=== PATIENT | male | born 2000 | race African-American/Black ===

== ENCOUNTER 2020-11-20 11:08 | Emergency (ER) | payer OTHER ==
[2020-11-20] MEDS ORDERED: ONDANSETRON 4 MG/2 ML VIAL ONE (12:12)
[2020-11-20] MEDS ORDERED: NA CHLORIDE 0.9% 1,000 ML ONE (12:12)
[2020-11-20] MEDS ORDERED: FAMOTIDINE 20 MG/2 ML VIAL IV ONE (12:12)
[2020-11-20 12:13] LABS: Absolute Lymphocytes (CBC) 1.3 K/uL (0.7-4.9); Basophils % 0.2 % (0-1.3); Hematocrit 33.8 % (39.6-49.0); Lymphocytes % 17.1 % (15.3-44.8); MPV 7.8 fL (7.6-11.3); RBC Red Blood Cell Count 4.46 M/uL (4.33-5.43)
[2020-11-20 12:24] LABS: ALT/SGPT 20 U/L (12-78); AST/SGOT 21 U/L (15-37); Albumin 3.2 g/dL (3.4-5.0); Alkaline Phosphatase 106 U/L (45-117); BUN Blood Urea Nitrogen 13 mg/dL (7-18); Bicarbonate 25 mmol/L (21-32); Bilirubin Direct 0.1 mg/dL (0-0.2); Bilirubin Total 0.3 mg/dL (0.2-1.0); Glucose Level 79 mg/dL (74-106); Lipase 21 U/L (73-393); Potassium 3.7 mmol/L (3.5-5.1); Protein, Total 10.8 g/dL (6.4-8.2); Sodium Level 137 mmol/L (136-145)
--- NOTE | 2020-11-20 14:28 | ER ---
Nurse's Notes [facility] Name: Jermaine Omer Age: 20 yrs Sex: Male : 2000 Arrival Date: 11/20/2020 Time: 11:12 Bed 28 Private MD: Diagnosis: Abdominal pain, unspecified;Proctitis Presentation: 11/20 11:20 Chief complaint: Patient states: "I have every symptom of covid except for shortness of ss breath. I also have had gastritis and I need that checked out too. I had blood in my vomit and that happened last time.". Coronavirus screen: Client presents with at least one sign or symptom that may indicate coronavirus-19. Ebola Screen: Patient denies exposure to infectious person. Patient denies travel to an Ebola-affected area in the 21 days before illness onset. Initial Sepsis Screen: Does the patient meet any 2 criteria? No. Patient's initial sepsis screen is negative. Does the patient have a suspected source of infection? No. Patient's initial sepsis screen is negative. Risk Assessment: Do you want to hurt yourself or someone else? Patient reports no desire to harm self or others. Onset of symptoms was November 17, 2020. 11:20 Method Of Arrival: Ambulatory ss 11:20 Acuity: FRANKLIN 3 ss Triage Assessment: 13:28 General: Appears comfortable, Behavior is cooperative, appropriate for age, anxious. oh Historical: - Allergies: 11:23 Ibuprofen; ss - Home Meds: 11:23 None [Active]; ss - PMHx: 11:23 gastritis; Asthma; ss - PSHx: 11:23 None; ss - Immunization history:: Client reports receiving the 2nd dose of the Covid vaccine. - Social history:: Smoking status: Patient denies any tobacco usage or history of. Screenin:27 Abuse screen: Denies threats or abuse. Nutritional screening: No deficits noted. oh Tuberculosis screening: No symptoms or risk factors identified. Fall Risk None identified. Assessment: 13:26 Neuro: Reports weakness in body. Cardiovascular:. GI: Reports lower abdominal pain, oh diarrhea, nausea, hx of IBS. EENT: Reports swollen lymph nodes, r/o covid. Vital Signs: 11:20 BP 150 / 85; Pulse 86; Resp 15; Temp 98.2(O); Pulse Ox 100% on R/A; Weight 52.62 kg; Height 5 ft. 11 in. (180.34 cm); Pain 0/10; 13:00 BP 122 / 71; Pulse 74; Resp 17; Pulse Ox 100% on R/A; oh 14:47 BP 120 / 74; Pulse 73; Resp 17; Pulse Ox 100% ; oh 11:20 Body Mass Index 16.18 (52.62 kg, 180.34 cm) ED Course: 11:12 Patient arrived in ED. as 11:12 Agusto Hook PA is PHCP. [facility] 11:12 Harley Coello MD is Attending Physician. m 11:23 Triage completed. ss 11:23 Arm band placed on right wrist. 11:42 Ismael Stahl, BELINDA is Primary Nurse. oh 12:02 Inserted saline lock: 20 gauge in left antecubital area, using aseptic technique. Blood oh collected. 13:27 Bed in low position. Call light in reach. oh 13:36 CT Abd/Pelvis - IV Contrast Only In Process Unspecified. EDMS 14:25 Alicia Plummer MD is Referral Physician. m 14:47 IV discontinued, bleeding controlled, Pressure dressing applied. oh 14:47 No provider procedures requiring assistance completed. oh Administered Medications: 12:01 Drug: NS 0.9% 1000 ml Route: IV; Rate: 1 bolus; Site: left antecubital; oh 12:01 Drug: Pepcid (famotidine) 20 mg Route: IVP; Site: left antecubital; oh 12:01 Drug: Zofran (Ondansetron) 4 mg Route: IVP; Site: left antecubital; oh Outcome: 14:27 Discharge ordered by . [facility] 14:47 Discharged to home oh 14:47 Condition: stable 14:47 Discharge instructions given to patient. 14:48 Patient left the ED. oh Signatures: Dispatcher [employer] EDMS Agusto Hook PA PA jmm Martinez, Amelia as Smirch, Shelby, BELINDA RN Ismael Stahl, BELINDA RN oh
--- NOTE | 2020-11-20 14:28 | EDPHYS ---
Physician Documentation [facility] Name: Jermaine Omer Age: 20 yrs Sex: Male : 2000 Arrival Date: 11/20/2020 Time: 11:12 Bed 28 Private MD: ED Physician Harley Coello HPI: 11/20 11:33 This 20 yrs old Black Male presents to ER via Ambulatory with complaints of r/o covid. jmm 11:33 The patient presents with abdominal pain. Onset: The symptoms/episode began/occurred jmm chronic. The symptoms do not radiate. Associated signs and symptoms: Pertinent negatives: fever. The symptoms are described as achy. This is a 20-year-old male with a history of chronic abdominal pain that presents emerge department with complaints of abdominal pain, vomiting, diarrhea. Worsening over the past week. Patient also has some generalized weakness and is concerned he may have coronavirus.. Historical: - Allergies: 11:23 Ibuprofen; ss - Home Meds: 11:23 None [Active]; ss - PMHx: 11:23 gastritis; Asthma; ss - PSHx: 11:23 None; ss - Immunization history:: Client reports receiving the 2nd dose of the Covid vaccine. - Social history:: Smoking status: Patient denies any tobacco usage or history of. ROS: 11:33 Cardiovascular: Negative for chest pain, palpitations, and edema, Respiratory: Negative jmm for shortness of breath, cough, wheezing, and pleuritic chest pain. 11:33 Constitutional: Positive for body aches, fatigue. 11:33 Abdomen/GI: Positive for abdominal pain. 11:33 All other systems are negative. Exam: 11:33 Constitutional: This is a well developed, well nourished patient who is awake, alert, jmm and in no acute distress. Head/Face: atraumatic. Eyes: EOMI, no conjunctival erythema appreciated ENT: Moist Mucus Membranes Neck: Trachea midline, Supple Chest/axilla: Normal chest wall appearance and motion. Cardiovascular: Regular rate and rhythm. No edema appreciated Respiratory: Normal respirations, no respiratory distress appreciated 11:33 Back: Normal ROM Skin: General appearance color normal 11:33 Abdomen/GI: Inspection: abdomen appears normal, Bowel sounds: normal, Palpation: soft, in all quadrants. 11:33 Musculoskeletal/extremity: ROM: intact in all extremities. 11:33 Skin: Appearance: Color: normal in color. 11:33 Neuro: Motor: is normal. 11:33 Psych: Behavior/mood is pleasant, cooperative. Vital Signs: 11:20 BP 150 / 85; Pulse 86; Resp 15; Temp 98.2(O); Pulse Ox 100% on R/A; Weight 52.62 kg; ss Height 5 ft. 11 in. (180.34 cm); Pain 0/10; 13:00 BP 122 / 71; Pulse 74; Resp 17; Pulse Ox 100% on R/A; oh 14:47 BP 120 / 74; Pulse 73; Resp 17; Pulse Ox 100% ; oh 11:20 Body Mass Index 16.18 (52.62 kg, 180.34 cm) ss MDM: 11:33 Patient medically screened. [facility] 14:25 Data reviewed: vital signs, nurses notes. Counseling: I had a detailed discussion with zuri the patient and/or guardian regarding: the historical points, exam findings, and any diagnostic results supporting the discharge/admit diagnosis, lab results, radiology results, the need for outpatient follow up, to return to the emergency department if symptoms worsen or persist or if there are any questions or concerns that arise at home. ED course: Patient is alert and nontoxic in appearance in the ED. Patient states feeling much better. Patient is able to tolerate p.o. in the ED. Covid is negative. Most likely has a chronic bowel condition such as ulcerative colitis or Crohn's. CT reveals inflammation in the rectum mainly.. 11/20 11:42 Order name: Basic Metabolic Panel; Complete Time: 12:38 [facility] 11/20 11:42 Order name: CBC with Diff; Complete Time: 12:21 [facility] 11/20 11:42 Order name: Hepatic Function; Complete Time: 12:38 [facility] 11/20 11:42 Order name: Lipase; Complete Time: 12:38 [facility] 11/20 12:31 Order name: SARS-COV-2 RT PCR; Complete Time: 13:38 [facility] 11/20 11:42 Order name: IV Saline Lock; Complete Time: 12:01 [facility] 11/20 11:42 Order name: Labs collected and sent; Complete Time: 12:01 [facility] 11/20 11:42 Order name: Urine Dipstick-Ancillary (obtain specimen) [facility] 11/20 13:16 Order name: CT Abd/Pelvis - IV Contrast Only [facility] Administered Medications: 12:01 Drug: NS 0.9% 1000 ml Route: IV; Rate: 1 bolus; Site: left antecubital; oh 12:01 Drug: Pepcid (famotidine) 20 mg Route: IVP; Site: left antecubital; oh 12:01 Drug: Zofran (Ondansetron) 4 mg Route: IVP; Site: left antecubital; oh Disposition: 22:58 Co-signature as Attending Physician, Harley Coello MD I agree with the assessment and kdr plan of care. Disposition Summary: 11/20/20 14:27 Discharge Ordered Location: Home [facility] Condition: Stable [facility] Diagnosis - Abdominal pain, unspecified [facility] - Proctitis [facility] Followup: [facility] - With: Alicia Plummer MD - When: 2 - 3 days - Reason: Recheck today's complaints, Continuance of care, Re-evaluation by your physician Discharge Instructions: - Discharge Summary Sheet [facility] - Proctitis [facility] Forms: - Medication Reconciliation Form [facility] - Thank You Letter [facility] - Antibiotic Education [facility] - Prescription Opioid Use [facility] Prescriptions: - Dexilant 30 mg Oral capsule,biphase delayed releas - take 1 capsule by ORAL route once daily; 30 capsule; Refills: 0, Product [facility] Selection Permitted - ondansetron 4 mg Oral tablet,disintegrating - place 1 tablet by TRANSLINGUAL route 4 times per day; 20 tablet; Refills: 0, [facility] Product Selection Permitted - Cipro 500 mg Oral Tablet - take 1 tablet by ORAL route every 12 hours for 10 days; 20 tablet; Refills: 0, [facility] Product Selection Permitted - Flagyl 500 mg Oral Tablet - take 1 tablet by ORAL route every 6 hours for 10 days; 40 tablet; Refills: 0, [facility] Product Selection Permitted - dicyclomine 20 mg Oral Tablet - take 1 tablet by ORAL route 3 times per day; 30 tablet; Refills: 0, Product [facility] Selection Permitted Signatures: Dispatcher [employer] EDHarley Orlando MD MD kdr Mickail, Joel, PA PA [facility] Felisa Kahn RN RN Ismael Stahl RN RN oh Corrections: (The following items were deleted from the chart) 12:32 11:45 CORONAVIRUS+LAB.BRZ ordered. EDMS EDMS
[2020-11-20 15:05] VITALS: TEMP 98.2; O2SAT 100
[2020-11-20 15:08] VITALS: BP 120/74
--- NOTE | 2020-11-20 16:38 | RAD REPORT ---
EXAM DESCRIPTION: CTAbdomen Pelvis W Contrast - 11/20/2020 3:07 pm CLINICAL HISTORY: abdominal pain COMPARISON: No comparisons TECHNIQUE: CT of the abdomen and pelvis was performed. All CT scans are performed using dose optimization technique as appropriate and may include automated exposure control or mA/KV adjustment according to patient size. FINDINGS: Lower chest: No acute abnormality. Liver: No acute abnormality or suspicious lesions. Biliary: No biliary ductal dilatation. Stomach: No significant focal abnormality. Duodenum: No significant focal abnormality. Pancreas: No significant abnormality. Spleen: No significant abnormality. Adrenal: No suspicious lesions. Kidney/ureter: No hydronephrosis. No renal calculi. Retroperitoneum: No retroperitoneal adenopathy. Vascular: No aneurysm. Bowel: Circumferential rectal wall thickening with enlarged perirectal lymph nodes.. Normal appendix Peritoneum: Small volume of free air. Bladder: Grossly unremarkable. Reproductive: No adnexal masses. Bones: No acute fracture. Other: n/a IMPRESSION: Rectal wall thickening with enlarged perirectal lymph nodes suggesting a proctitis. The enlarged lymph nodes would be more indicative of a subacute or chronic process. Inflammatory bowel di sease is a consideration.
== END 2020-11-20 14:48 | disposition home or self-care (01) ==
LOC: ER 11:08
DX: K62.89 Other specified diseases of anus and rectum (principal); Z20.822 Contact with and (suspected) exposure to COVID-19; Z88.6 Allergy status to analgesic agent
CPT/HCPCS: 85025; 80048; 36415; 80076; 83690; 74177; 96375; 96374; 99284; U0003; Q9967; J7030; J2405